=== PATIENT | female | born 1940 | race Caucasian/White ===

== ENCOUNTER 2018-02-20 06:37 | Emergency (ER) | payer OTHER ==
--- NOTE | 2018-02-20 08:26 | EDPHYS ---
Physician Documentation [facility] Name: Tanya Joyner Age: 77 yrs Sex: Female : 1940 Arrival Date: 02/20/2018 Time: 06:38 Bed 20 Private MD: Jayjay Narvaez ED Physician Lemuel Austin HPI: 02/20 07:08 This 77 yrs old Female presents to ER via Unassigned with complaints of Fall rn Injury, Shoulder Injury. 07:08 Details of fall: The patient fell from an upright position, while walking. Onset: The rn symptoms/episode began/occurred this morning. Associated injuries: The patient sustained Right shoulder. Severity of symptoms: At their worst the symptoms were moderate, in the emergency department the symptoms are unchanged. The patient has not experienced similar symptoms in the past. Reports tripped, fell with right arm outstretched, hurts to move and touch right upper arm. No other injuries. . Historical: - Allergies: 07:20 Hydrocodone-Acetaminophen; jd3 - Home Meds: 07:20 Synthroid Oral [Active]; Janumet oral oral [Active]; Fish Oil oral oral [Active]; jd3 aspirin 81 mg Oral chew [Active]; - PMHx: 07:20 Diabetes - NIDDM; breast cancer; High Cholesterol; endometrial cancer; jd3 - PSHx: 07:20 Thyroidectomy; Hysterectomy; lymphectomy; right shoulder sx; right ankle sx; right foot jd3 sx; - Immunization history:: Adult Immunizations up to date. - Family history:: not pertinent. - Social history:: Smoking status: unknown. - Ebola Screening: : Patient negative for fever greater than or equal to 101.5 degrees Fahrenheit, and additional compatible Ebola Virus Disease symptoms. - Hospitalizations: : No recent hospitalization is reported. ROS: 07:08 Constitutional: Negative for fever, chills, and weight loss, Neck: Negative for injury, rn pain, and swelling, Cardiovascular: Negative for chest pain, palpitations, and edema, Abdomen/GI: Negative for abdominal pain, nausea, vomiting, diarrhea, and constipation, Back: Negative for injury and pain, MS/Extremity: + right shoulder pain and injury Skin: Negative for injury, rash, and discoloration, Neuro: Negative for headache, weakness, numbness, tingling, and seizure. Exam: 07:08 Constitutional: This is a well developed, well nourished patient who is awake, alert, rn holding right arm flexed and in sling Head/Face: Normocephalic, atraumatic. Neck: no spinal tenderness MS/ Extremity: Pulses equal, no cyanosis. Neurovascular intact. + right arm flexed and held in sling, + tenderness proximal humerus with limited ROM. Vital Signs: 06:45 BP 142 / 66; Pulse 82; Resp 16 S; Temp 97.7(O); Pulse Ox 99% on R/A; Weight 96.16 kg jd3 (R); Height 5 ft. 6 in. (167.64 cm) (R); Pain 10/10; 07:39 BP 109 / 58; Pulse 65; Resp 16; Pulse Ox 99% ; bp 06:45 Body Mass Index 34.22 (96.16 kg, 167.64 cm) jd3 MDM: 06:58 Patient medically screened. rn 08:25 Differential diagnosis: contusion, fracture, sprain, strain. Data reviewed: vital rn signs, nurses notes, radiologic studies, plain films, and as a result, I will discharge patient. Counseling: I had a detailed discussion with the patient and/or guardian regarding: the historical points, exam findings, and any diagnostic results supporting the discharge/admit diagnosis, radiology results, the need for outpatient follow up, to return to the emergency department if symptoms worsen or persist or if there are any questions or concerns that arise at home. Response to treatment: the patient's symptoms have mildly improved after treatment, and as a result, I will discharge patient. Special discussion: I discussed with the patient/guardian in detail that at this point there is no indication for admission to the hospital. It is understood, however, that if the symptoms persist or worsen the patient needs to return immediately for re-evaluation. Based on the history and exam findings, there is no indication for further emergent testing or inpatient evaluation. I discussed with the patient/guardian the need to see the orthopedic surgeon for further evaluation of the symptoms. 02/20 07:08 Order name: XRAY Humerus RIGHT rn 02/20 08:09 Order name: Shoulder Immobilizer; Complete Time: 09:07 rn Administered Medications: 08:20 Drug: Demerol 25 mg Route: IM; Site: left deltoid; bp 08:42 Follow up: Response: No adverse reaction; Pain is decreased bp 08:20 Drug: Ibuprofen 800 mg Route: PO; bp 08:42 Follow up: Response: Pain is decreased bp Disposition: 02/20/18 08:26 Discharged to Home. Impression: Displaced comminuted fracture of shaft of humerus, right arm. - Condition is Stable. - Discharge Instructions: Humerus Fracture Treated With Immobilization. - Prescriptions for Tylenol- Codeine #3 300-30 mg Oral Tablet - take 1 tablet by ORAL route every 6 hours As needed; 20 tablet. - Medication Reconciliation Form, Thank You Letter, Antibiotic Education, Prescription Opioid Use form. - Follow up: Ignacio Cho MD; When: 2 - 3 days; Reason: Recheck today's complaints, Re-evaluation by your physician. - Problem is new. - Symptoms have improved. Signatures: Dispatcher [employer] EDMS Lemuel Austin MD MD rn Davies, Jonathon, RN RN jLennox March RN RN bp Corrections: (The following items were deleted from the chart) 09:09 08:26 02/20/2018 08:26 Discharged to Home. Impression: Displaced comminuted fracture of bp shaft of humerus, right arm. Condition is Stable. Forms are Medication Reconciliation Form, Thank You Letter, Antibiotic Education, Prescription Opioid Use. Follow up: Ignacio Cho; When: 2 - 3 days; Reason: Recheck today's complaints, Re-evaluation by your physician. Problem is new. Symptoms have improved. rn
--- NOTE | 2018-02-20 08:26 | ER ---
Nurse's Notes [facility] Name: Tanya Joyner Age: 77 yrs Sex: Female : 1940 Arrival Date: 02/20/2018 Time: 06:38 Bed 20 Private MD: Jayjay Narvaez Diagnosis: Displaced comminuted fracture of shaft of humerus, right arm Presentation: 02/20 06:45 Presenting complaint: Patient states: "I tripped and fell on the side walk and landed jd3 on my right arm.". Transition of care: patient was not received from another setting of care. Onset of symptoms was February 20, 2018. Risk Assessment: Do you want to hurt yourself or someone else? Patient reports no desire to harm self or others. Initial Sepsis Screen: Does the patient meet any 2 criteria? No. Patient's initial sepsis screen is negative. Does the patient have a suspected source of infection? No. Patient's initial sepsis screen is negative. Care prior to arrival: None. 06:45 Method Of Arrival: Ambulatory jd3 06:45 Acuity: LUCRETIA 3 jd3 Triage Assessment: 07:00 General: Appears in no apparent distress. comfortable, Behavior is calm, cooperative, bp appropriate for age. Pain: Complains of pain in right shoulder. Historical: - Allergies: 07:20 Hydrocodone-Acetaminophen; jd3 - Home Meds: 07:20 Synthroid Oral [Active]; Janumet oral oral [Active]; Fish Oil oral oral [Active]; jd3 aspirin 81 mg Oral chew [Active]; - PMHx: 07:20 Diabetes - NIDDM; breast cancer; High Cholesterol; endometrial cancer; jd3 - PSHx: 07:20 Thyroidectomy; Hysterectomy; lymphectomy; right shoulder sx; right ankle sx; right foot jd3 sx; - Immunization history:: Adult Immunizations up to date. - Family history:: not pertinent. - Social history:: Smoking status: unknown. - Ebola Screening: : Patient negative for fever greater than or equal to 101.5 degrees Fahrenheit, and additional compatible Ebola Virus Disease symptoms. - Hospitalizations: : No recent hospitalization is reported. Screenin:21 Abuse screen: Denies threats or abuse. Nutritional screening: No deficits noted. jd3 Tuberculosis screening: No symptoms or risk factors identified. Fall Risk Fall in past 12 months (25 points). Ambulatory Aid- None/Bed Rest/Nurse Assist (0 pts). Gait- Normal/Bed Rest/Wheelchair (0 pts) Mental Status- Oriented to own ability (0 pts). Total Rowe Fall Scale indicates Low Risk Score (25-44 pts). Fall prevention measures have been instituted. Side Rails Up X 2 Placed close to Nursing Station Frequent Obs/Assesments occuring Family Present and informed to notify staff if they need to leave bedside. Assessment: 07:00 General: Appears in no apparent distress. comfortable, Behavior is calm, cooperative, bp appropriate for age. Pain: Complains of pain in right arm. Neuro: Level of Consciousness is awake, alert, obeys commands, Oriented to person, place, time, situation, Appropriate for age. Cardiovascular: No deficits noted. Respiratory: Airway is patent Respiratory effort is even, unlabored, Respiratory pattern is regular, symmetrical. GI: No signs and/or symptoms were reported involving the gastrointestinal system. : No signs and/or symptoms were reported regarding the genitourinary system. EENT: No deficits noted. Derm: No deficits noted. Musculoskeletal: Circulation, motion, and sensation intact. Range of motion: limited in right shoulder. 07:51 Reassessment: XRAY COMPLETED, VS STABLE. bp 09:08 Reassessment: PT D/C HOME VIA W/C WITH FAMILY, DX WITH R HUMERUS FX. bp Vital Signs: 06:45 BP 142 / 66; Pulse 82; Resp 16 S; Temp 97.7(O); Pulse Ox 99% on R/A; Weight 96.16 kg jd3 (R); Height 5 ft. 6 in. (167.64 cm) (R); Pain 10/10; 07:39 BP 109 / 58; Pulse 65; Resp 16; Pulse Ox 99% ; bp 06:45 Body Mass Index 34.22 (96.16 kg, 167.64 cm) jd3 ED Course: 06:38 Patient arrived in ED. es 06:38 Jayjay Narvaez MD is Private Physician. es 06:58 Lemuel Austin MD is Attending Physician. rn 07:10 Sling applied to right arm. oe 07:16 Triage completed. jd3 07:17 Arm band placed on. jd3 07:21 Patient has correct armband on for positive identification. Bed in low position. Call jd3 light in reach. Side rails up X 1. Adult w/ patient. 07:31 Lennox Campbell, RN is Primary Nurse. bp 08:04 X-ray completed. Portable x-ray completed in exam room. Patient tolerated procedure jb2 well. 08:06 XRAY Humerus RIGHT In Process Unspecified. EDMS 08:26 Ignacio Cho MD is Referral Physician. rn 08:45 Shoulder immobilizer applied on right shoulder. bp 09:09 No provider procedures requiring assistance completed. Patient did not have IV access bp during this emergency room visit. Administered Medications: 08:20 Drug: Demerol 25 mg Route: IM; Site: left deltoid; bp 08:42 Follow up: Response: No adverse reaction; Pain is decreased bp 08:20 Drug: Ibuprofen 800 mg Route: PO; bp 08:42 Follow up: Response: Pain is decreased bp Outcome: 08:26 Discharge ordered by MD. rn 09:08 Discharged to home via wheelchair, with family. bp 09:08 Condition: stable 09:08 Discharge instructions given to patient, family, Instructed on discharge instructions, follow up and referral plans. medication usage, Demonstrated understanding of instructions, follow-up care, medications, Prescriptions given X 1. 09:09 Patient left the ED. bp Signatures: Dispatcher [employer] EDMS DorothyNhungjulioallen Juaquin jb2 Lemuel Austin MD MD rn Espinosa, Orlando oe Davies, Jonathon, RN RN Lennox Adames, RN RN bp Corrections: (The following items were deleted from the chart) 07:34 07:33 General: Appears in no apparent distress. comfortable, Behavior is calm, bp cooperative, appropriate for age, bp 07:34 07:33 Pain: Complains of pain in right shoulder bp bp
[2018-02-20] MEDS ORDERED: IBUPROFEN 400 MG TAB ONE (08:33)
[2018-02-20] MEDS ORDERED: MEPERIDINE HCL 25 MG/0.5 ML ONE (08:33)
[2018-02-20 09:19] VITALS: TEMP 97.7; O2SAT 99
[2018-02-20 09:21] VITALS: BP 109/58
--- NOTE | 2018-02-20 09:23 | RAD REPORT ---
EXAM DESCRIPTION: RAD - Humerus Right - 02/20/2018 8:05 am CLINICAL HISTORY: Trip and fall, arm pain COMPARISON: None. FINDINGS: AP and scapular Y-views were obtained in the shoulder region with AP and lateral views of the mid shaft and elbow. Transverse surgical neck fracture is present with shaft displaced anteriorly 1/2 shaft width. Humeral head maintains normal positioning to the glenoid. There is an additional transverse fracture through the greater tuberosity with 1- 2 mm of distraction. No pathologic component. AC joint degenerative changes are present. No foreign body or other soft tis christina abnormality. At the elbow joint there is no acute bone finding. Degenerative changes minimal. IMPRESSION: Displaced surgical neck fracture and nondisplaced greater tuberosity fractures of the pr oximal humerus. No dislocation of the humeral head.
== END 2018-02-20 09:09 | disposition home or self-care (01) ==
LOC: ER 06:37
DX: S42.351A Displaced comminuted fracture of shaft of humerus, right arm, initial encounter for closed fracture (principal); W19.XXXA Unspecified fall, initial encounter; Y93.01 Activity, walking, marching and hiking; Y92.9 Unspecified place or not applicable; Z79.82 Long term (current) use of aspirin; Z85.3 Personal history of malignant neoplasm of breast; Z85.89 Personal history of malignant neoplasm of other organs and systems; Z88.5 Allergy status to narcotic agent; E11.9 Type 2 diabetes mellitus without complications; E78.00 Pure hypercholesterolemia, unspecified
CPT/HCPCS: 73060; 96372; 99284; J2175

== ENCOUNTER → 2023-06-03 | Emergency (ER) | payer OTHER ==
[~2023-06-03] MED LIST: MORPHINE 4 MG/ML SYR ONE; ONDANSETRON 4 MG (ODT) TAB ONE
--- NOTE | 2023-06-03 16:09 | RAD REPORT ---
EXAM DESCRIPTION: CT - CTFB CLINICAL HISTORY: TRAUMA COMPARISON: No comparisons TECHNIQUE: Axial 2 mm thick images of the face were obtained with sagittal and coronal reconstructio n images. All CT scans are performed using dose optimization technique as appropriate and may include automated exposure control or mA/KV adjustment according to patient size. FINDINGS: No acute facial bone fracture is seen.The mandible is intact. The globes and orbital contents are grossly unremarkable.The paranasal sinuses and mastoids are clear . Left forehead hematoma. IMPRESSION: No facial fracture identified. Left forehead hematoma.
--- NOTE | 2023-06-03 16:16 | RAD REPORT ---
EXAM DESCRIPTION: CT - CTHCSPWOC - 06/03/2023 4:00 pm CLINICAL HISTORY: Trauma, head and neck injury. TRAUMA COMPARISON: No comparisons TECHNIQUE: Axial 5 mm thick images of the head were obtained. Axial 2 mm thick images of the cervical spine were obtained with sagittal and coronal reconstruction images generated and reviewed. All CT scans are performed using dose optimization technique as appropriate and may include automated exposure control or mA/KV adjustment according to patient size. FINDINGS: CT HEAD WITHOUT CONTRAST: No acute hemorrhage, hydrocephalus or extra-axial collection is identified.No areas of brain edema or midline shift. Chronic small vessel ischemic changes. The paranasal sinuses and mastoids are clear.The calvarium is intact. CT CERVICAL SPINE WITHOUT CONTRAST: No fracture or subluxation.No prevertebral soft tissues swelling is identified. Multilevel degenerati ve changes are present in the spine. IMPRESSION: No acute intracranial or cervical spine findings.
--- NOTE | 2023-06-03 16:18 | RAD REPORT ---
EXAM DESCRIPTION: RAD - Shoulder Left 2 View - 06/03/2023 3:58 pm CLINICAL HISTORY: PAIN COMPARISON: No comparisons FINDINGS/IMPRESSION: Multipart fracture of the left proximal humerus involving at least the surgical neck and greater tuberosity. No dislocation . Left AC joint degenerative changes.
--- NOTE | 2023-06-03 16:19 | RAD REPORT ---
EXAM DESCRIPTION: RAD - Chest Single View - 06/03/2023 3:58 pm CLINICAL HISTORY: BLUNT CHEST TRAUMA COMPARISON: Chest Pa And Lat (2 Views) dated 06/30/2021 FINDINGS: Lines: None. Lungs: No evidence of edema or pneumonia. Pleural: No significant pleural effusions or pneumothorax. Cardiac: Similar size and configuration Mediastinum: Within normal limits. Bones: No acute fractures. Fixation hardware at the right humerus. Other: None IMPRESSION: No acute cardiopulmonary disease.
--- NOTE | 2023-06-03 16:38 | EDPHYS ---
Physician Documentation [facility] Name: Tanya Joyner Age: 82 yrs Sex: Female : 1940 Arrival Date: 06/03/2023 Time: 15:05 Bed 13 Private MD: ED Physician Charly Poon HPI: 06/02 15:08 This 82 yrs old Female presents to ER via Unassigned with complaints of fall. jh7 15:08 Mechanism of injury: Fall: the patient fell from a standing position and struck a tile jh7 surface. Associated injuries: The patient sustained injury to the head, hematoma, left shoulder, decreased range of motion, painful injury. Onset: The symptoms/episode began/occurred acutely. 82-year-old female with a past medical history of hypertension and diabetes presents to the ER post fall. The patient states that she was switching clothing from her washer to her dryer and then slipped on a piece of laundry. She states that her shoulder and forehead hit the door frame and that her left shoulder took the impact of the fall. Complains of pain to her forehead and inability to move her left shoulder secondary to pain. No LOC.. Historical: - Allergies: 15:18 Hydrocodone-Acetaminophen; db - PMHx: 15:18 breast cancer; Diabetes - NIDDM; ENDOMETRIAL CANCER; High Cholesterol; Hypothyroidism; db Hypertensive disorder; - Immunization history:: Adult Immunizations unknown. - Social history:: Smoking status: Patient denies any tobacco usage or history of. Patient/guardian denies using alcohol. ROS: 15:08 Constitutional: Negative for fever, chills, and weight loss, Eyes: Negative for injury, jh7 pain, redness, and discharge, Neck: Negative for injury, pain, and swelling, Cardiovascular: Negative for chest pain, palpitations, and edema, Respiratory: Negative for shortness of breath, cough, wheezing, and pleuritic chest pain, Abdomen/GI: Negative for abdominal pain, nausea, vomiting, diarrhea, and constipation, Back: Negative for injury and pain, Skin: Negative for injury, rash, and discoloration, Neuro: Negative for headache, weakness, numbness, tingling, and seizure, 15:08 MS/extremity: Positive for injury or acute deformity, decreased range of motion, pain, tenderness, of the left shoulder, 15:08 All other systems are negative, Exam: 15:08 Constitutional: This is a well developed, well nourished patient who is awake, alert, jh7 and in no acute distress. Eyes: Pupils equal round and reactive to light, extra-ocular motions intact. Lids and lashes normal. Conjunctiva and sclera are non-icteric and not injected. Cornea within normal limits. Periorbital areas with no swelling, redness, or edema. Neck: Trachea midline, no thyromegaly or masses palpated, and no cervical lymphadenopathy. Supple, full range of motion without nuchal rigidity, or vertebral point tenderness. No Meningismus. Cardiovascular: Regular rate and rhythm with a normal S1 and S2. No gallops, murmurs, or rubs. Normal PMI, no JVD. No pulse deficits. Respiratory: Lungs have equal breath sounds bilaterally, clear to auscultation and percussion. No rales, rhonchi or wheezes noted. No increased work of breathing, no retractions or nasal flaring. Abdomen/GI: Soft, non-tender, with normal bowel sounds. No distension or tympany. No guarding or rebound. No evidence of tenderness throughout. Back: No spinal tenderness. No costovertebral tenderness. Full range of motion. Skin: Warm, dry with normal turgor. Normal color with no rashes, no lesions, and no evidence of cellulitis. Neuro: Awake and alert, GCS 15, oriented to person, place, time, and situation. Sensory grossly intact. Cerebellar exam normal. 15:08 Head/face: Noted is hematoma, that is moderate, of the forehead, 15:08 Musculoskeletal/extremity: Extremities: noted in the left shoulder: decreased ROM, pain, tenderness, ROM: limited active range of motion due to pain, in the left shoulder, limited passive range of motion due to pain, in the left shoulder, Circulation is intact in all extremities. Pulses: are normal with no appreciated deficits, Sensation intact. Vital Signs: 15:02 BP 156 / 123; Pulse 79; Resp 18; Temp 99.1(O); Pulse Ox 99% ; Weight 90.72 kg; Height 5 db ft. 6 in. ; 15:30 BP 151 / 63; Pulse 74; Resp 16; Pulse Ox 96% on R/A; db 15:02 Body Mass Index 32.28 (90.72 kg, 167.64 cm) db MDM: 15:08 Patient medically screened. [facility] 16:25 Differential diagnosis: extremity fracture, shoulder dislocation, shoulder sprain, 7 shoulder contusion, facial fracture. Data reviewed: vital signs, nurses notes, radiologic studies, CT scan, plain films. I considered the following discharge prescriptions or medication management in the emergency department Medications were administered in the Emergency Department. See MAR. Independent interpretation of the following test(s) in the Emergency Department X-Ray: My interpretation is Left proximal humerus fracture. Historians other than the Patient: Daughter/Son: Daughter. Care significantly affected by the following chronic conditions: Diabetes, Hypertension. Counseling: I had a detailed discussion with the patient and/or guardian regarding the historical points, exam findings, and any diagnostic results supporting the discharge/admit diagnosis, the need for outpatient follow up, a orthopedic surgeon, to return to the emergency department if symptoms worsen or persist or if there are any questions or concerns that arise at home. Response to treatment: the patient's symptoms have mildly improved after treatment. Special discussion: Based on the history and exam findings, there is no indication for further emergent testing or inpatient evaluation. I discussed with the patient/guardian the need to see the orthopedic surgeon for further evaluation of the symptoms. 06/02 15:15 Order name: XRAY Chest (1 view); Complete Time: 16:21 [facility] 06/02 15:15 Order name: XRAY Shoulder LEFT 2 view; Complete Time: 16:21 [facility] 06/02 15:15 Order name: CT Facial Bones W/O Con; Complete Time: 16:21 [facility] 06/02 15:15 Order name: CT Head C Spine; Complete Time: 16:21 [facility] 06/02 16:22 Order name: Shoulder Immobilizer; Complete Time: 17:03 [facility] Administered Medications: 15:31 Drug: morphine IM 4 mg IM once Route: IM; Site: right deltoid; db 17:06 Follow up: Response: No adverse reaction db 15:31 Drug: Ondansetron Oral Disintegrating Tablet Oral Disintegrating Tablet 4 mg PO once db Route: PO; 17:06 Follow up: Response: No adverse reaction db Disposition Summary: 06/03/23 16:37 Discharge Ordered Notes: Location: Home [facility] Problem: new [facility] Symptoms: have improved [facility] Condition: Stable [facility] Diagnosis - Left proximal humerus fracture jh7 - Fall on same level, unspecified [facility] - Facial hematoma [facility] Followup: [facility] - With: Samuel Sadler MD - When: 2 - 3 days - Reason: Recheck today's complaints Discharge Instructions: - Discharge Summary Sheet [facility] - Hematoma [facility] - Fall Prevention in the Home, Adult [facility] - Humerus Fracture Treated With Immobilization [facility] - How to Use a Shoulder Immobilizer [facility] Forms: - Medication Reconciliation Form [facility] - Thank You Letter [facility] - Prescription Opioid Use [facility] - Patient Portal Instructions [facility] - Leadership Thank You Letter [facility] Prescriptions: - Tramadol 50 mg Oral tablet - take 1 tablet ORAL route every 8 hours As needed as needed; 20 tablet; Refills: [facility] 0, Product Selection Permitted Signatures: Dispatcher [employer] Oxana Hutchison, ADMINISTRATIVE PERSONAL ASSISTANT ADMINISTRATIVE PERSONAL ASSISTANT [facility] Nabila Jo, RN RN db
--- NOTE | 2023-06-03 16:38 | ER ---
Nurse's Notes [facility] Name: Tanya Joyner Age: 82 yrs Sex: Female : 1940 Arrival Date: 06/03/2023 Time: 15:05 Bed 13 Private MD: Diagnosis: Left proximal humerus fracture;Fall on same level, unspecified;Facial hematoma Presentation: 06/02 15:02 Chief complaint: EMS states: TRIP AND FELL WHILE DOING LAUNDRY. HIT HEAD ON WALL AND db LANDED ON BUTTOCKS AND LEFT ARM. COMPLAINS OF LEFT ARM PAIN. NOTED BRUISING TO FOREHEAD DENIES LOC. GLUCOSE 86. EMS GAVE TYLENOL. Coronavirus screen: Client denies travel out of the [place] in the last 14 days. At this time, the client does not indicate any symptoms associated with coronavirus-19. Ebola Screen: Patient negative for fever greater than or equal to 101.5 degrees Fahrenheit, and additional compatible Ebola Virus Disease symptoms Patient denies exposure to infectious person. Patient denies travel to an Ebola-affected area in the 21 days before illness onset. No symptoms or risks identified at this time. Initial Sepsis Screen: Does the patient meet any 2 criteria? No. Patient's initial sepsis screen is negative. Does the patient have a suspected source of infection? No. Patient's initial sepsis screen is negative. Risk Assessment: Do you want to hurt yourself or someone else? Patient reports no desire to harm self or others. Onset of symptoms was June 03, 2023. Care prior to arrival: Splint applied. Medication(s) given: Tylenol, 1000 mg, Glucose check: 86. Mechanism of Injury: Fall from standing position. 15:02 Method Of Arrival: EMS: [facility] db 15:02 Acuity: LUCRETIA 3 db Triage Assessment: 15:18 General: Appears in no apparent distress. comfortable, Behavior is calm, cooperative. db Pain: Complains of pain in head and left arm. Neuro: Level of Consciousness is awake, alert, obeys commands, Oriented to person, place, time, situation, Speech is normal, Facial symmetry appears normal, Pupils are PERRLA. Respiratory: Airway is patent Respiratory effort is even, unlabored, Respiratory pattern is regular, symmetrical. Musculoskeletal: Circulation, motion, and sensation intact. Capillary refill < 3 seconds, Range of motion: limited in left shoulder. Historical: - Allergies: 15:18 Hydrocodone-Acetaminophen; db - PMHx: 15:18 breast cancer; Diabetes - NIDDM; ENDOMETRIAL CANCER; High Cholesterol; Hypothyroidism; db Hypertensive disorder; - Immunization history:: Adult Immunizations unknown. - Social history:: Smoking status: Patient denies any tobacco usage or history of. Patient/guardian denies using alcohol. Screenin:38 [facility] ED Fall Risk Assessment (Adult) History of falling in the last 3 months, db including since admission Yes- single mechanical fall (1 pt) Confusion or Disorientation No (0 pts) Intoxicated or Sedated No (0 pts) Impaired Gait No (0 pts) Mobility Assist Device Used No (0 pt) Altered Elimination No (0 pt) Score/Fall Risk Level 0 - 2 = Low Risk Oriented to surroundings, Maintained a safe environment. Abuse screen: Denies threats or abuse. Denies injuries from another. Nutritional screening: No deficits noted. Tuberculosis screening: No symptoms or risk factors identified. Assessment: 15:20 Reassessment: SEE TRIAGE FOR INITIAL ASSESSMENT. db 15:38 Reassessment: Patient appears in no apparent distress at this time. Patient and/or db family updated on plan of care and expected duration. Pain level reassessed. Patient is alert, oriented x 3, equal unlabored respirations, skin warm/dry/pink. FAMILY IS AT BEDSIDE. 16:30 Reassessment: Patient appears in no apparent distress at this time. Patient and/or db family updated on plan of care and expected duration. Pain level reassessed. Patient is alert, oriented x 3, equal unlabored respirations, skin warm/dry/pink. General: Appears in no apparent distress. comfortable, Behavior is calm, cooperative. Neuro: Level of Consciousness is awake, alert, obeys commands, Oriented to person, place, time, situation. Respiratory: Airway is patent Respiratory effort is even, unlabored, Respiratory pattern is regular, symmetrical. Vital Signs: 15:02 BP 156 / 123; Pulse 79; Resp 18; Temp 99.1(O); Pulse Ox 99% ; Weight 90.72 kg; Height 5 db ft. 6 in. ; 15:30 BP 151 / 63; Pulse 74; Resp 16; Pulse Ox 96% on R/A; db 15:02 Body Mass Index 32.28 (90.72 kg, 167.64 cm) db ED Course: 15:08 Patient arrived in ED. 15:08 Oxana Goodman FNP [facility] 15:08 Charly Poon MD is Attending Physician. [facility] 15:15 Nabila Jo, RN is Primary Nurse. db 15:18 Triage completed. db 15:18 Arm band placed on Patient placed in an exam room. db 15:38 Patient has correct armband on for positive identification. Bed in low position. Call db light in reach. Side rails up X 1. Pulse ox on. NIBP on. 16:00 XRAY Chest (1 view) In Process Unspecified. EDMS 16:00 XRAY Shoulder LEFT 2 view In Process Unspecified. EDMS 16:[address] via stretcher. hb 16:02 CT Facial Bones W/O Con In Process Unspecified. EDMS 16:02 CT Head C Spine In Process Unspecified. EDMS 16:13 Patient moved back from CT. 16:36 Samuel Sadler MD is Referral Physician. [facility] 16:45 Provided Education on: DISCHARGE. db 16:45 Shoulder immobilizer applied on left shoulder. db 17:05 No provider procedures requiring assistance completed. Patient did not have IV access db during this emergency room visit. Administered Medications: 15:31 Drug: morphine IM 4 mg IM once Route: IM; Site: right deltoid; db 17:06 Follow up: Response: No adverse reaction db 15:31 Drug: Ondansetron Oral Disintegrating Tablet Oral Disintegrating Tablet 4 mg PO once db Route: PO; 17:06 Follow up: Response: No adverse reaction db Medication: 16:45 VIS not applicable for this client. db Outcome: 16:37 Discharge ordered by . [facility] 17:05 Discharged to home ambulatory, with family, db 17:05 Condition: stable 17:05 Discharge instructions given to patient, family, Instructed on discharge instructions, follow up and referral plans. Prescriptions given X 1, 17:06 Patient left the ED. db Signatures: Dispatcher [employer] EDLouise Foreman, RN RN Yelena Thorpe Oxana Goodman FNP [place] [id number] Nabila Jo, RN RN db Corrections: (The following items were deleted from the chart) 17:05 16:30 Patient did not have IV access during this emergency room visit. db db 17:05 16:30 No provider procedures requiring assistance completed. db db
[2023-06-03 17:33] VITALS: BP 151/63; O2SAT 96
== END ==
LOC: ER 15:05
DX: S42.202A Unspecified fracture of upper end of left humerus, initial encounter for closed fracture (principal); S00.83XA Contusion of other part of head, initial encounter; W18.30XA Fall on same level, unspecified, initial encounter; E11.9 Type 2 diabetes mellitus without complications; I10 Essential (primary) hypertension; Z88.5 Allergy status to narcotic agent; Z85.3 Personal history of malignant neoplasm of breast; Z85.89 Personal history of malignant neoplasm of other organs and systems
CPT/HCPCS: 70450; 72125; 70486; 76377; 71045; 73030; 96372; 99285; Q0162

== ENCOUNTER 2023-06-06 10:47 | Inpatient (IN) | payer OTHER ==
[2023-06-06 12:04] LABS: Absolute Eosinophils 0.1 K/uL (0-0.5); Absolute Lymphocytes (CBC) 1.4 K/uL (0.7-4.9); Absolute Monocytes 0.3 K/uL (0.1-1.3); Absolute Neutrophil 3.4 K/uL (1.8-8.0); Basophils % 0.7 % (0-1.3); Eosinophils % 2.2 % (0-4.4); Hematocrit 37.1 % (36.0-45.0); Hemoglobin 12.2 g/dL (12.0-15.0); MCH 28.7 pg (27.0-35.0); MCHC 32.9 g/dL (32.0-36.0); MCV 87.1 fL (80-100); MPV 9.1 fL (7.6-11.3); Monocytes % 5.1 % (3.3-12.3); Nucleated Red Blood Cells % 0.1 % (0-0); Platelets 232 thou/uL (152-406); RBC Red Blood Cell Count 4.26 M/uL (3.86-4.86); Red Cell Distribution Width 14.9 % (12.1-15.2)
[2023-06-06 12:19] LABS: Albumin 3.1 g/dL (3.4-5.0); Albumin/Globulin Ratio 0.7 (1.1-1.8); Anion Gap 9.8 mEq/L (5.0-15.0); Bilirubin Direct 0.3 mg/dL (0-0.2); Bilirubin Indirect, Calculated 0.5 mg/dL (0.2-0.8); Bilirubin Total 0.8 mg/dL (0.2-1.0); Globulin 4.5 g/dL (2.3-3.5); Potassium 3.8 mEq/L (3.5-5.1); Protein, Total 7.6 g/dL (6.4-8.2)
--- NOTE | 2023-06-06 12:54 | RAD REPORT ---
EXAM DESCRIPTION: RAD - Chest Single View - 06/06/2023 12:43 pm CLINICAL HISTORY: RIB PAIN, BLUNT CHEST TRAUMA Chest pain. COMPARISON: Chest Single View dated 06/03/2023; Chest Pa And Lat (2 Views) dated 06/30/2021 FINDINGS: Portable technique limits examination quality. The lungs are grossly clear. The heart is mildly enlarged in size. No displaced fractures.Hardware is present in the proximal right humerus.
--- NOTE | 2023-06-06 12:55 | RAD REPORT ---
EXAM DESCRIPTION: RAD - Ribs Right - 06/06/2023 12:43 pm CLINICAL HISTORY: RIB PAIN, BLUNT CHEST TRAUMA COMPARISON: Chest Single View dated 06/06/2023 FINDINGS: Diffuse osteopenia is present. No displaced rib fracture evident.
--- NOTE | 2023-06-06 13:53 | ER ---
[facility]'s Notes [facility] Name: Tanya Joyner Age: 82 yrs Sex: Female : 1940 Arrival Date: 06/06/2023 Time: 10:47 Bed 20 Private MD: Diagnosis: Weakness;Fall on same level, unspecified Presentation: 06/05 11:01 Chief complaint: EMS states: "Pt tripped and fell Monday and reports becoming rs5 progressively weaker over the past few days". 11:01 Coronavirus screen: At this time, the client does not indicate any symptoms associated rs5 with coronavirus-19. Ebola Screen: No symptoms or risks identified at this time. Initial Sepsis Screen: Does the patient meet any 2 criteria? No. Patient's initial sepsis screen is negative. Does the patient have a suspected source of infection? No. Patient's initial sepsis screen is negative. Risk Assessment: Do you want to hurt yourself or someone else? Patient reports no desire to harm self or others. Onset of symptoms was June 03, 2023. 11:01 Method Of Arrival: EMS: [facility] rs5 11:01 Acuity: LUCRETIA 3 rs5 11:01 Care prior to arrival: Medication(s) given: Toradol 15 mg to RAC IV initiated. 20 GA, rs5 in the right antecubital area. Historical: - Allergies: 11: Hydrocodone-Acetaminophen; rs5 - PMHx: 11: breast cancer; Diabetes - NIDDM; ENDOMETRIAL CANCER; High Cholesterol; Hypertensive rs5 disorder; Hypothyroidism; - Immunization history:: Adult Immunizations up to date. - Social history:: Smoking status: . - Family history:: not pertinent. - Hospitalizations: : No recent hospitalization is reported. Screenin:01 [facility] ED Fall Risk Assessment (Adult) History of falling in the last 3 months, rs5 including since admission Yes- single mechanical fall (1 pt) Confusion or Disorientation No (0 pts) Intoxicated or Sedated No (0 pts) Impaired Gait Yes (1 pt) Mobility Assist Device Used No (0 pt) Altered Elimination No (0 pt) Score/Fall Risk Level 0 - 2 = Low Risk Oriented to surroundings, Maintained a safe environment. 11:01 Abuse screen: Denies threats or abuse. Abuse screen: Denies threats or abuse. rs5 Nutritional screening: No deficits noted. Tuberculosis screening: No symptoms or risk factors identified. Assessment: 11:01 General: Appears in no apparent distress. uncomfortable, Behavior is calm, cooperative. rs5 Pain: Complains of pain in left shoulder Pain currently is 2 out of 10 on a pain scale. Quality of pain is described as aching, Is continuous. 11:01 Neuro: Level of Consciousness is awake, alert, obeys commands, Oriented to person, rs5 place, time, situation. Cardiovascular: Patient's skin is warm and dry. Rhythm is regular. Respiratory: Respiratory effort is even, unlabored, Respiratory pattern is regular, symmetrical. GI: Abdomen is round non-distended, Abd is soft and non tender X 4 quads. : No signs and/or symptoms were reported regarding the genitourinary system. EENT: No signs and/or symptoms were reported regarding the EENT system. Derm: Skin is intact, Skin is pink, warm \\T\\ dry. Derm: Bruising that is bruise noted to left side of pt's forehead. Musculoskeletal: Capillary refill < 3 seconds, is brisk, in bilateral fingers. Range of motion: limited in left arm. 12:05 Reassessment: No changes from previously documented assessment. rs5 13:35 Reassessment: Patient and/or family updated on plan of care and expected duration. Pain rs5 level reassessed. Patient is alert, oriented x 3, equal unlabored respirations, skin warm/dry/pink. Patient denies pain at this time. 13:50 Reassessment: Provider at bedside. rs5 14:55 Reassessment: Patient and/or family updated on plan of care and expected duration. Pain rs5 level reassessed. Patient is alert, oriented x 3, equal unlabored respirations, skin warm/dry/pink. Patient states feeling better. Vital Signs: 11:01 BP 158 / 76; Pulse 80; Resp 18; Temp 97.8(O); Pulse Ox 98% on R/A; rs5 13:36 BP 150 / 83; Pulse 77; Resp 18; Pulse Ox 98% on R/A; rs5 ED Course: 10:54 Patient arrived in ED. rn 10:54 Lemuel Austin MD is Attending Physician. rn 11:01 Patient has correct armband on for positive identification. Placed in gown. Bed in low rs5 position. Call light in reach. Side rails up X2. 11:23 Harlan Bermeo, JUSTIN is Primary Nurse. rs5 11:26 Triage completed. rs5 13:37 No provider procedures requiring assistance completed. rs5 13:51 Darek Austin MD is Hospitalizing Provider. rn 15:30 Primary Nurse role handed off by Harlan Bermeo, RN mb9 Administered Medications: No medications were administered Medication: 13:37 VIS not applicable for this client. rs5 Outcome: 13:53 Decision to Hospitalize by Provider. rn 18:38 Patient left the ED. iw Signatures: Ariadne Fitzgerald RN RN iw Lemuel Austin MD MD rn Breneman, Mary Beth, RN RN mb9 Harlan Bermeo, JUSTIN RN rs5
--- NOTE | 2023-06-06 13:53 | EDPHYS ---
Physician Documentation [facility] Name: Tanya Joyner Age: 82 yrs Sex: Female : 1940 Arrival Date: 06/06/2023 Time: 10:47 Bed 20 Private MD: ED Physician Lemuel Austin HPI: 06/05 11:22 This 82 yrs old Female presents to ER via Unassigned with complaints of weakness. rn 11:22 Patient reports generalized weakness and malaise. Fell on Monday and broke left rn humerus. Did not have pain initially to right ribs but now complaining of slight discomfort to the right ribs. No shortness of breath. No chest pain otherwise. Patient reports swelling to face and bruising to face improving slowly. No new fall or injury. Family concerned due to fall and difficulty caring for herself in the last few days. Patient states has been sitting and family taking care of her. Denies focal weakness. Patient states she does not feel that bad or as bad as her family makes it sound.. Onset: The symptoms/episode began/occurred at an unknown time. Severity of symptoms: At their worst the symptoms were mild in the emergency department the symptoms are unchanged. The patient has not experienced similar symptoms in the past. The patient has been recently seen at the [facility] Emergency Department. Historical: - Allergies: 11: Hydrocodone-Acetaminophen; rs5 - PMHx: 11:01 breast cancer; Diabetes - NIDDM; ENDOMETRIAL CANCER; High Cholesterol; Hypertensive rs5 disorder; Hypothyroidism; - Immunization history:: Adult Immunizations up to date. - Social history:: Smoking status: . - Family history:: not pertinent. - Hospitalizations: : No recent hospitalization is reported. ROS: 11:22 Constitutional: Negative for fever, chills, and weight loss, Cardiovascular: Positive rn for right-sided rib pain Respiratory: Negative for shortness of breath, cough, wheezing, and pleuritic chest pain, Abdomen/GI: Negative for abdominal pain, nausea, vomiting, diarrhea, and constipation, Back: Negative for injury and pain, MS/Extremity: Positive for previous fracture to left humerus Skin: Negative for injury, rash, and discoloration, Neuro: Negative for headache, numbness, tingling, and seizure, Exam: 11:22 Constitutional: This is a well developed, well nourished patient who is awake, alert, rn and in no acute distress. Head/Face: Healing ecchymosis to left periorbital region Eyes: Pupils equal round and reactive to light, extra-ocular motions intact. ENT: No intraoral injury Neck: No midline cervical tenderness Chest/axilla: Mild tenderness right inferior lateral ribs without crepitus Cardiovascular: Regular rate and rhythm. No pulse deficits. Respiratory: No increased work of breathing, no retractions or nasal flaring. Abdomen/GI: Soft, non-tender, nondistended MS/ Extremity: Left arm in shoulder immobilizer. Neuro: Awake and alert, GCS 15, oriented to person, place, time, and situation. Cranial nerves II-XII grossly intact. Motor strength 4/5 in all extremities. Sensory grossly intact. 15:07 ECG was reviewed by the Attending Physician. rn Vital Signs: 11:01 BP 158 / 76; Pulse 80; Resp 18; Temp 97.8(O); Pulse Ox 98% on R/A; rs5 13:36 BP 150 / 83; Pulse 77; Resp 18; Pulse Ox 98% on R/A; rs5 MDM: 10:54 Patient medically screened. rn 13:50 Differential Diagnosis weakness, dehydration, pleurisy, pneumonia, electrolyte rn disturbance, dementia. Data reviewed: vital signs, nurses notes, lab test result(s), radiologic studies, plain films, and as a result, I will admit patient. Consideration of Admission/Observation Patient was admitted/placed on observation. Escalation of care including admission/observation considered. Management of patient was discussed with the following: Primary Care Provider: Dr. Narvaez, discussed case, agrees with observation in hospital with physical therapy. Is leaving out of town tomorrow morning so asked me to admit to hospitalist service. Care significantly affected by the following chronic conditions: Diabetes, Hypertension, Dementia. Counseling: I had a detailed discussion with the patient and/or guardian regarding the historical points, exam findings, and any diagnostic results supporting the discharge/admit diagnosis, lab results, radiology results, the need for further work-up and treatment in the hospital. Response to treatment: the patient's symptoms have mildly improved after treatment, and as a result, I will admit patient. 06/05 10:55 Order name: CBC with Diff rn 06/05 10:55 Order name: Basic Metabolic Panel rn 06/05 10:55 Order name: Urinalysis w/ reflexes rn 06/05 10:55 Order name: LFT's rn 06/05 12:06 Order name: CBC with Automated Diff; Complete Time: 12:34 EDCO 06/05 12:20 Order name: Comprehensive Metabolic Panel; Complete Time: 12:34 EDMS 06/05 12:20 Order name: Liver (Hepatic) Function; Complete Time: 12:34 EDCO 06/05 10:55 Order name: XRAY Chest (1 view) rn 06/05 10:55 Order name: Ribs Right XRAY rn 06/05 12:54 Order name: RAD; Complete Time: 13:31 EDCO 06/05 12:55 Order name: RAD; Complete Time: 13:31 EDCO 06/05 10:55 Order name: EKG; Complete Time: 17:07 rn 06/05 10:55 Order name: IV Start; Complete Time: 11:58 rn 06/05 10:55 Order name: EKG - Nurse/Tech; Complete Time: 11:58 rn 06/05 10:55 Order name: Cardiac monitoring; Complete Time: 11:58 rn 06/05 10:55 Order name: O2 Sat Monitoring; Complete Time: 11:58 rn EC:07 Rate is 62 beats/min. Rhythm is regular. [place] interval is prolonged at 360 msec. QRS rn interval is normal. QT interval is normal. No Q waves. T waves are Normal. No ST changes noted. Clinical impression: NSR w/ Non-specific ST/T Changes and 1st degree heart block. Interpreted by me. Reviewed by me. Administered Medications: No medications were administered Disposition Summary: 06/06/23 13:53 Hospitalization Ordered Notes: Hospitalization Status: Observation rn Provider: Darek Austin rn Location: Telemetry/MedSurg (observation) rn Condition: Stable rn Problem: new rn Symptoms: are unchanged rn Bed/Room Type: Standard rn Room Assignment: 418(06/06/23 17:26) mc5 Diagnosis - Weakness rn - Fall on same level, unspecified rn Forms: - Medication Reconciliation Form rn - SBAR form rn - Leadership Thank You Letter rn Signatures: Dispatcher [facility] Lemuel Austin MD MD rn Sotelo, Ricky, RN RN 5 Navya Beckman mc5 Corrections: (The following items were deleted from the chart) 17:26 13:53 [facility]
--- NOTE | 2023-06-06 14:49 | P.HP ---
Certification for Inpatient Patient admitted to: Observation With expected LOS: <2 Midnights Patient will require the following post-hospital care: None Practitioner: I am a practitioner with admitting privileges, knowledge of patient current condition, hospital course, and medical plan of care. Services: Services provided to patient in accordance with Admission requirements found in Title 42 Section 412.3 of the Code of Federal Regulations Patient History Date of Service: 06/06/23 Reason for admission: Weakness, left humeral fracture History of Present Illness: 82-year-old female with history of [id number]-yezgpheek diabetes, hypertension, secondary hypothyroidism presents to the emergency department chief complaint of weakness, fall, left upper extremity pain. On 06/03/2023 she suffered a mechanical fall with a proximal left humerus fracture and facial hematoma. She was discharged home with a sling in place and instructions to follow-up with orthopedics. Daughter reports that she has been having increasing weakness and was unable to stand up without assistance today. Patient lives at home, alone and there is concern for her ability to care for herself given her increasing weakness, pain to the left upper extremity. Patient was evaluated in the emergency department her labs were unremarkable chest x-ray was negative for acute findings, ribs series x-ray was performed as well which showed no displaced rib fractures. ED provider wishes admit patient under observation for weakness, left proximal humeral fracture Allergies Antihistamines - Alkylamine Adverse Reaction (Mild, Verified 12/06/12 14:35) Itching Home Medications: Aspirin [Aspirin EC 81 MG] 81 mg PO DAILY 12/06/12 Levothyroxine [Synthroid] 100 mcg PO AC 12/06/12 Niacin [Niacin*] 100 mg PO BEDTIME 12/06/12 Lupton-3 Fatty Acids [Fish Oil] 500 mg PO BID 12/06/12 Sitagliptin Phos/Metformin HCl [Janumet 50-500 mg Tablet] 1 each PO BID 12/06/12 - Past Medical/Surgical History Diabetic: Yes -: DM -: Hyperlipidemia -: Hypothyroidism -: Thyroidectomy -: Hysterectomy -: Lumpectomy -: Carpal tunnel surgery -: Right humeral repair Psychosocial/ Personal History: Lives at home, alone. - Family History Family History: Reviewed- Non-Contributory - Social History Smoking Status: Never smoker Alcohol use: No Place of Residence: Home Review of Systems 10-point ROS is otherwise unremarkable Musculoskeletal: Shoulder Pain, Arm Pain Physical Examination - Physical Exam General: Alert, In no apparent distress, Oriented x3 HEENT: Atraumatic, PERRLA, Mucous membr. moist/pink Neck: Supple, 2+ carotid pulse no bruit, No LAD Respiratory: Clear to auscultation bilaterally, Normal air movement Cardiovascular: Regular rate/rhythm, Normal S1 S2 Gastrointestinal: Normal bowel sounds, No tenderness Musculoskeletal: Other (left arm in sling) Integumentary: No rashes, Other (Left facial bruising noted) Neurological: Normal speech, Normal strength at 5/5 x4 extr, Normal tone, Normal affect - Studies Laboratory Data (last 24 hrs) 06/06/23 06/06/23 10:50 10:50 WBC 5.30 Hgb 12.2 Hct 37.1 Plt Count 232 Sodium 137 Potassium 3.8 BUN 17 Creatinine 0.91 Glucose 90 Total Bilirubin 0.8 AST 16 ALT 14 Alkaline Phosphatase 74 Assessment and Plan - Plan Assessment: Weakness, left proximal humeral fracture Dementia Diabetes mellitus type [id number] Hypertension Hypothyroidism Plan: Weakness, left proximal humeral fracture Dementia Sling to left upper extremity place PT consulted Patient lives alone, was unable to get out of her recliner today Concern given her dementia, increased risk for falls, inability to care for herself currently Await PT recs, social services aide consult to be placed As needed pain medications Diabetes mellitus type [id number] ACHS Accu-Chek, sliding scale insulin Hypertension Hypothyroidism Continue home medications DVT PPX: Lovenox Code status: Full Discharge Plan: Home Plan to discharge in: 24 Hours - Advance Directives Does patient have a Living Will: No Does patient have a Durable POA for Healthcare: No - Code Status/Comfort Care Code Status Assessed: Yes (Full code) Critical Care: No Time Spent Managing Pts Care (In Minutes): 55
[2023-06-06 16:22] VITALS: BMI 35.5
[2023-06-06] MEDS ORDERED: ONDANSETRON 4 MG/2 ML VIAL IV PRN (19:49)
[2023-06-06] MEDS: INSULIN REGULAR (HUMAN) 100 UNIT/ML SQ SCH (19:49)
[2023-06-06] MEDS: TRAMADOL HCL 50 MG TAB PO PRN (22:00)
[2023-06-07] MEDS: ACETAMINOPHEN 325 MG TABLET PO PRN (01:34)
[2023-06-07 07:38] LABS: Absolute Eosinophils 0.1 K/uL (0-0.5); Absolute Lymphocytes (CBC) 1.8 K/uL (0.7-4.9); Absolute Monocytes 0.3 K/uL (0.1-1.3); Absolute Neutrophil 2.3 K/uL (1.8-8.0); Basophils % 0.8 % (0-1.3); Eosinophils % 2.9 % (0-4.4); Hematocrit 35.1 % (36.0-45.0); Hemoglobin 11.6 g/dL (12.0-15.0); Lymphocytes % 39.4 % (15.3-44.8); MCH 28.8 pg (27.0-35.0); MCHC 33.1 g/dL (32.0-36.0); MCV 87.2 fL (80-100); MPV 9.2 fL (7.6-11.3); Monocytes % 7.1 % (3.3-12.3); Neutrophils % 49.8 % (41.7-73.7); Nucleated Red Blood Cells % 0.1 % (0-0); Platelets 204 thou/uL (152-406); RBC Red Blood Cell Count 4.02 M/uL (3.86-4.86); Red Cell Distribution Width 14.9 % (12.1-15.2)
[2023-06-07] MEDS: ENOXAPARIN 40 MG/0.4 ML SQ SCH (07:53)
[2023-06-07 08:04] LABS: Anion Gap 8.8 mEq/L (5.0-15.0); Potassium 3.8 mEq/L (3.5-5.1); Thyroid Stimulating Hormone 2.39 uIU/mL (0.358-3.740)
[2023-06-07] MEDS: POTASSIUM CL SA 10 MEQ TAB PO ONE (10:48)
--- NOTE | 2023-06-07 11:43 | P.PN ---
Date of Service: 06/07/23 Subjective: Complains of pain with movement of left shoulder No acute events overnight ROS: 10 point ROS as noted above, otherwise negative Physical exam GEN: Alert, oriented, NAD HEENT: Normal conjunctiva, sclera anicteric CV: Regular rate and rhythm, no edema Pulm: Nonlabored respirations on room air ABD: Soft, nontender, nondistended MSK: Left arm in sling, pain range of motion of left upper extremity Integumentary: No rashes Neuro: Normal speech, normal affect Vitals reviewed Problem List Weakness, left proximal humeral fracture Dementia Diabetes mellitus type 0oyj-euzxeyh-tiezdlivb Hypertension Hypothyroidism Plan: Weakness, left proximal humeral fracture Dementia Sling to left upper extremity place limiting ability to use walker/ambulate PT consulted Patient lives alone, was unable to get out of her recliner today Concern given her dementia, increased risk for falls, inability to care for herself currently Await PT recs, social service technician consult to be placed As needed pain medications Having some chest wall pain as well, added incentive spirometry Diabetes mellitus type 1dpa-xzqhqgc-bpzovtzki ACHS Accu-Chek, sliding scale insulin Home medications continued Hypertension Hypothyroidism Home medications continued DVT PPX: Lovenox Code status: Full Discharge Plan: Home Plan to discharge in: 24 Hours Time Spent Managing Pts Care (In Minutes): 35 <Tuan Biggs - Last Filed: 06/07/23 11:41> (DOS: 06/07/23) Patient seen and examined on rounds this morning with DATA MANAGEMENT ASSOCIATE Dian. Agree with plan as noted above with the following additions/corrections: slight improvement. pain mostly with movement/deep breath at right ribs/chest afebrile. not moving around much due to pain. family at bedside, updated. concerned about ability to care for her at home. patient lives by herself currently, with family able to occasionally check on her she has some mild dementia - memory issues; repeats herself occasionally re-iterated importance of incentive spirometer continue PT <Darek Austin - Last Filed: 06/11/23 14:25>
[2023-06-07] MEDS: HYDROXYCHLOROQUINE 200MG TAB PO SCH (21:04)
[2023-06-07] MEDS: METFORMIN HCL 500 MG TAB PO SCH (21:05)
[2023-06-08] MEDS: LEVOTHYROXINE SOD 0.088 MG TAB PO SCH (06:01)
[2023-06-08 06:29] LABS: Anion Gap 8.8 mEq/L (5.0-15.0); Potassium 3.8 mEq/L (3.5-5.1)
[2023-06-08 06:35] LABS: Absolute Eosinophils 0.1 K/uL (0-0.5); Absolute Lymphocytes (CBC) 1.2 K/uL (0.7-4.9); Absolute Monocytes 0.3 K/uL (0.1-1.3); Absolute Neutrophil 2.8 K/uL (1.8-8.0); Basophils % 0.4 % (0-1.3); Eosinophils % 2.8 % (0-4.4); Hematocrit 36.3 % (36.0-45.0); Lymphocytes % 26.1 % (15.3-44.8); MCH 28.9 pg (27.0-35.0); MCHC 32.9 g/dL (32.0-36.0); MCV 87.9 fL (80-100); MPV 9.1 fL (7.6-11.3); Monocytes % 7.2 % (3.3-12.3); Neutrophils % 63.5 % (41.7-73.7); Nucleated Red Blood Cells % 0.1 % (0-0); Platelets 222 thou/uL (152-406); RBC Red Blood Cell Count 4.13 M/uL (3.86-4.86)
[2023-06-08] MEDS: PIOGLITAZONE 15 MG TAB PO SCH (07:44)
[2023-06-08] MEDS: predniSONE 5 MG TAB PO SCH (07:44)
[2023-06-08] MEDS: METFORMIN HCL 500 MG TAB PO SCH (07:44)
[2023-06-08] MEDS: ramipriL 5 MG CAP PO SCH (07:44)
[2023-06-08] MEDS: ASPIRIN EC 81 MG TAB PO SCH (07:45)
[2023-06-08] MEDS: POTASSIUM CL SA 10 MEQ TAB PO ONE (08:52)
[2023-06-08] MEDS: LIDOCAINE 4% PATCH TOP SCH (12:48)
--- NOTE | 2023-06-08 13:26 | P.PN ---
Date of Service: 06/08/23 Subjective: Complains of pain with movement of left shoulder Also C/O pain to right thorax ROS: 10 point ROS as noted above, otherwise negative Physical exam GEN: Alert, oriented, NAD HEENT: Normal conjunctiva, sclera anicteric CV: Regular rate and rhythm, no edema Pulm: Nonlabored respirations on room air ABD: Soft, nontender, nondistended MSK: Left arm in sling, pain range of motion of left upper extremity Integumentary: No rashes Neuro: Normal speech, normal affect Vitals reviewed Problem List Weakness, left proximal humeral fracture Dementia Diabetes mellitus type [id number]-[id number]-jsrpbxhry Hypertension Hypothyroidism Plan: Weakness, left proximal humeral fracture Dementia Sling to left upper extremity place limiting ability to use walker/ambulate PT consulted Patient lives alone, was unable to get out of her recliner today Concern given her dementia, increased risk for falls, inability to care for herself currently Seen by PT who believes patient would benefit with inpatient rehab human resources services specialist consulted for acute rehab As needed pain medications Having some chest wall pain as well, added incentive spirometry Added lidocaine patch 06/07 Diabetes mellitus type [id number]-[id number]-uvvdjmhgb ACHS Accu-Chek, sliding scale insulin Home medications continued Hypertension Hypothyroidism Home medications continued DVT PPX: Lovenox Code status: Full Discharge Plan: Home Plan to discharge in: 24-48 hours Time Spent Managing Pts Care (In Minutes): 35
[2023-06-08 19:59] LABS: Specific Gravity 1.028 (1.005-1.030); Urine Bacteria <20 /HPF (<20); Urine Bilirubin NEGATIVE (Negative); Urine Blood 2+ (Negative); Urine Clarity Extremely Turbid (Clear); Urine Color Yellow (Yellow); Urine Crystals Unidentified Few /HPF (None Seen); Urine Culture Reflex Order REFLEXED; Urine Glucose NEGATIVE (Negative); Urine Ketones TRACE (Negative); Urine Microscopic Reflex YN ORDER UMIC; Urine Mucus 2+ /HPF (None Seen); Urine Nitrite 2+ (Negative); Urine Protein 1+ (Negative); Urine Urobilinogen 1+ (Normal); Urine WBC 20-50 /HPF (<5); Urine Yeast (Budding) Few /HPF (None Seen)
--- NOTE | 2023-06-09 08:57 | RAD REPORT ---
EXAM DESCRIPTION: CT - Thorax Wo Con - 06/09/2023 8:47 am CLINICAL HISTORY: Chest pain status post fall COMPARISON: None TECHNIQUE: Computed axial tomography of the chest was obtained. Contrast was not requested. All CT scans are performed using dose optimization technique as appropriate and may include automated exposure control or mA/KV adjustment according to patient size. FINDINGS: The evaluation of mediastinum, rochelle and vessels is limited secondary to lack of IV contras t administration. A mediastinal hematoma is not seen. A pulmonary contusion is not noted A pleural effusion is not present. A pericardial effusion is not seen A rib fracture is not seen IMPRESSION: No acute traumatic injury involving the chest seen
--- NOTE | 2023-06-09 12:44 | P.PN ---
Date of Service: 06/09/23 Subjective: Complains of pain with movement of left shoulder Also C/O pain to right thorax working well with physical therapy No acute events overnight ROS: 10 point ROS as noted above, otherwise negative Physical exam GEN: Alert, oriented, NAD HEENT: Normal conjunctiva, sclera anicteric CV: Regular rate and rhythm, no edema Pulm: Nonlabored respirations on room air ABD: Soft, nontender, nondistended MSK: Left arm in sling, pain range of motion of left upper extremity Integumentary: No rashes Neuro: Normal speech, normal affect Vitals reviewed Problem List Weakness, left proximal humeral fracture Dementia Diabetes mellitus type [id number]-[id number]-dnrucvgax Hypertension Hypothyroidism Plan: Weakness, left proximal humeral fracture Dementia Sling to left upper extremity place limiting ability to use walker/ambulate PT consulted Patient lives alone, was unable to get out of her recliner today Concern given her dementia, increased risk for falls, inability to care for herself currently Seen by PT who believes patient would benefit with inpatient rehab food services manager consulted for acute rehab As needed pain medications Having some chest wall pain as well, added incentive spirometry Added lidocaine patch 06/07 CT chest 06/08 no acute findings of the chest/rib fractures Diabetes mellitus type [id number]-grgkmvauk ACHS Accu-Chek, sliding scale insulin Home medications continued Hypertension Hypothyroidism Home medications continued DVT PPX: Lovenox Code status: Full Discharge Plan: Home Plan to discharge in: 24-48 hours Time Spent Managing Pts Care (In Minutes): 35
--- NOTE | 2023-06-09 17:35 | EKG ---
Test Date: 2023-06-06 Test Time: 11:52:13 Clerk Guide: BRITTNEY MEASUREMENT RESULTS: Intervals: Rate: 62 SD: 360 QRSD: 90 QT: 438 QTc: 444 [place]: P: 64 SD: 360 QRS: 65 T: 67 INTERPRETIVE STATEMENTS: Sinus rhythm with marked sinus arrhythmia with 1st degree AV block Nonspecific T wave abnormality Abnormal ECG No previous ECG available for comparison Electronically Signed On 06-09-23 17:25:33 CDT by Jaciel Gill
--- NOTE | 2023-06-10 08:43 | CON ---
Date of Consultation: 06/09/2023 Reason For Consultation: Left shoulder pain. History Of Present Illness: Tanya is an 82-year-old female, who presented to the ER after sustainin g a fall onto her left side with subsequent pain. The injury occurred on June 02, when she fell onto her left side and has a proximal left humerus fracture as well as some facial bruising. The patient has been discharged in the ER initially, however she was brought back to the hospital where she is h aving progressive weakness and she was admitted to the floor. The patient was placed in a shoulder s ling and has been on the floor, undergoing physical therapy. She denies any musculoskeletal complain ts at this time. Review of Systems: As above, otherwise negative. Past Medical History: Includes diabetes, hyperlipidemia, hypothyroidism. Past Surgical History: Includes thyroidectomy, hysterectomy, lumpectomy, carpal tunnel surgery, and right proximal humerus ORIF. Allergies: TO ANTIHISTAMINES. Home Medications: Aspirin, levothyroxine, niacin, fish oil, Janumet. Social History: Denies tobacco or alcohol use. Lives at home. Family History: Reviewed and noncontributory. Physical Examination: General: No apparent distress. HEENT: Normocephalic, atraumatic. Neck: Supple. Cardiovascular: Brisk cap refill to all digits. Chest: Nonlabored breathing. Abdomen: Nondistended. Psychiatric: Response to exam. Musculoskeletal: Bilateral lower extremities functional range of motion without pain. No gross defo rmities. No obvious dislocations. Right upper extremity, functional range of motion without pain. No gross deformities. No obvious dislocation. Left upper extremity pain with range of motion of the left shoulder. Tenderness to palpation over the left proximal humerus. Positive EPL, FPL, intrinsi cs. Sensation grossly intact to radial, median, and ulnar nerve distributions as well as axillary ne rve distributions. Diagnostic Studies: X-rays of the left shoulder demonstrate a minimally displaced left proximal chaz kellen fracture. Assessment/plan: Tanya is an 82-year-old female with a left proximal humerus fracture. I discussed with the patient and her daughter at length the diagnosis as well as treatment plan. Given the mini mal displacement, we will proceed with closed treatment at this time. The patient will remain nonwei ghtbearing at the left upper extremity and remain in sling. We will begin physical therapy in 4-6 we eks post injury. We will get x-rays in 2 weeks for re-evaluation of the fracture. She may follow up in the clinic. RIK/JOE Voice ID: [id number] Report ID: [id number]
--- NOTE | 2023-06-10 11:47 | P.PN ---
Date of Service: 06/10/23 Subjective: Complains of pain with movement of left shoulder working well with physical therapy No acute events overnight ROS: 10 point ROS as noted above, otherwise negative Physical exam GEN: Alert, oriented, NAD HEENT: Normal conjunctiva, sclera anicteric CV: Regular rate and rhythm, no edema Pulm: Nonlabored respirations on room air ABD: Soft, nontender, nondistended MSK: Left arm in sling, pain range of motion of left upper extremity Integumentary: No rashes Neuro: Normal speech, normal affect Vitals reviewed Problem List Weakness, left proximal humeral fracture Dementia Diabetes mellitus type [id number]-nqnasakii Hypertension Hypothyroidism Plan: Weakness, left proximal humeral fracture Dementia Sling to left upper extremity place limiting ability to use walker/ambulate PT consulted Patient lives alone, was unable to get out of her recliner today Concern given her dementia, increased risk for falls, inability to care for herself currently Seen by PT who believes patient would benefit with inpatient rehab banking services officer consulted for acute rehab Orthopedics recommending left arm in sling for 1 month As needed pain medications Having some chest wall pain as well, added incentive spirometry Added lidocaine patch 06/07 CT chest 06/08 no acute findings of the chest/rib fractures Diabetes mellitus type [id number]-opezupu-aocrryyod ACHS Accu-Chek, sliding scale insulin Home medications continued Hypertension Hypothyroidism Home medications continued DVT PPX: Lovenox Code status: Full Discharge Plan: inpatient rehab Plan to discharge in: 24-48 hours Time Spent Managing Pts Care (In Minutes): 35
[2023-06-10] MEDS ORDERED: AMLODIPINE 5 MG TAB PO ONE (15:53)
[2023-06-10] MEDS: AMLODIPINE 5 MG TAB PO ONE (16:06)
[2023-06-11 04:38] LABS: Absolute Basophils 0.1 K/uL (0-0.5); Absolute Eosinophils 0.1 K/uL (0-0.5); Absolute Lymphocytes (CBC) 1.2 K/uL (0.7-4.9); Absolute Monocytes 0.4 K/uL (0.1-1.3); Absolute Neutrophil 3.9 K/uL (1.8-8.0); Basophils % 1.4 % (0-1.3); Eosinophils % 1.6 % (0-4.4); Hematocrit 35.8 % (36.0-45.0); Lymphocytes % 20.9 % (15.3-44.8); MCH 28.9 pg (27.0-35.0); MCHC 33.4 g/dL (32.0-36.0); MCV 86.3 fL (80-100); MPV 8.7 fL (7.6-11.3); Monocytes % 6.6 % (3.3-12.3); Neutrophils % 69.5 % (41.7-73.7); Platelets 241 thou/uL (152-406); RBC Red Blood Cell Count 4.15 M/uL (3.86-4.86); Red Cell Distribution Width 14.7 % (12.1-15.2)
[2023-06-11 04:55] LABS: Anion Gap 10.8 mEq/L (5.0-15.0); Magnesium 1.9 mg/dL (1.6-2.4); Potassium 3.8 mEq/L (3.5-5.1)
[2023-06-11] MEDS: HYDRALAZINE HCL 20 MG/ML VIAL IV PRN (06:08)
[2023-06-11] MEDS: AMLODIPINE 5 MG TAB PO SCH (08:49)
--- NOTE | 2023-06-11 11:29 | P.PN ---
Date of Service: 06/11/23 Subjective: Complains of pain with movement of left shoulder working well with physical therapy No acute events overnight possibly slightly worsening confusion per family ROS: 10 point ROS as noted above, otherwise negative Physical exam GEN: Alert, oriented, NAD HEENT: Normal conjunctiva, sclera anicteric CV: Regular rate and rhythm, no edema Pulm: Nonlabored respirations on room air ABD: Soft, nontender, nondistended MSK: Left arm in sling, pain range of motion of left upper extremity Integumentary: No rashes Neuro: Normal speech, normal affect Vitals reviewed Problem List Weakness, left proximal humeral fracture Dementia UTI-ESBL Diabetes mellitus type [id number]-[id number] Hypertension Hypothyroidism Plan: Weakness, left proximal humeral fracture Dementia Sling to left upper extremity place limiting ability to use walker/ambulate PT consulted Patient lives alone, was unable to get out of her recliner today Concern given her dementia, increased risk for falls, inability to care for herself currently Seen by PT who believes patient would benefit with inpatient rehab human services supervisor consulted for acute rehab Orthopedics recommending left arm in sling for 1 month As needed pain medications Having some chest wall pain as well, added incentive spirometry Added lidocaine patch 06/07 CT chest 06/08 no acute findings of the chest/rib fractures UTI-ESBL Patient family reports possibly slightly more confused than baseline although she does have some underlying dementia Started Merrem IV 06/10 ID consult Diabetes mellitus type 4qxo-lrmfuqy-orxkaqsoj ACHS Accu-Chek, sliding scale insulin Home medications continued Hypertension Hypothyroidism Home medications continued DVT PPX: Lovenox Code status: Full Discharge Plan: inpatient rehab Plan to discharge in: 24-48 hours Time Spent Managing Pts Care (In Minutes): 35 <Tuan Biggs - Last Filed: 06/11/23 11:27> Patient seen and examined on rounds this morning with MERCHANT BANKER Dian. Agree with plan as noted above with the following additions/corrections: cough increased yesterday, not taking pain meds much, but consistently wincing with any movement or light cough discussed importance of pain control to prevent further complications, to allow good cough and use of incentive spirometer discussed with daughter, bringing diclofenac cream to apply to ribs, and sche duling tramadol urine culture: ESBL e.coli denies urinary symptoms, but states she is "predisposed to getting UTIs" family report a few episodes in last day where she has been having slight increased confusion start merrem 06/10 <Darek Austin - Last Filed: 06/11/23 13:39>
[2023-06-11] MEDS: Meropenem 1,000 MG in NA CHLORIDE 0.9% 100 ML IV SCH (14:18)
[2023-06-11] MEDS: TRAMADOL HCL 50 MG TAB PO SCH (14:19)
[2023-06-12] MEDS: MORPHINE 2 MG/ML SYR IM ONE (02:00)
[2023-06-12] MEDS ORDERED: MORPHINE 2 MG/ML SYR IV PRN (05:51)
--- NOTE | 2023-06-12 10:01 | P.CNS ---
Date of Consult: 06/12/23 Reason for Consult: e.coli ESBL Chief Complaint: Weakness, left humeral fracture History of Present Illness: Patient is an 82 year old female with a PMH of non-insulin dependent diabetes mellitus, hypertension, hypothyroidism, hyperlipidemia who presented to the ED with complaints of increasing weakness. Patient was recently hospitalized following a mechanical fall and suffered a proximal left humerus fracture and facial hematoma. Urine culture growing E.coli ESBL. Infectious disease was consulted. Allergies Antihistamines - Alkylamine Adverse Reaction (Mild, Verified 12/06/12 14:35) Itching Home medications list reviewed: Yes Home Medications: Aspirin [Aspirin EC 81 MG] 81 mg PO DAILY 12/06/12 Hydroxychloroquine [Plaquenil] 200 mg PO BID 06/07/23 Levothyroxine Sodium 88 mcg PO DAILY 06/07/23 Metformin HCl 1,000 mg PO DAILY 06/07/23 Metformin HCl 1,500 mg PO BEDTIME 06/07/23 Pioglitazone HCl 30 mg PO DAILY 06/07/23 Prednisone 2.5 mg PO DAILY 06/07/23 Ramipril [Altace] 5 mg PO DAILY 06/07/23 Tramadol HCl [Ultram] 50 mg PO Q8HP 06/07/23 Donepezil [Aricept*] 10 mg PO DAILY 06/12/23 - Past Medical/Surgical History Diabetic: Yes -: DM -: Hyperlipidemia -: Hypothyroidism -: Thyroidectomy -: Hysterectomy -: Lumpectomy -: Carpal tunnel surgery -: Right humeral repair Psychosocial/ Personal History: Lives at home, alone. - Social History Smoking Status: Unknown if ever smoked Alcohol use: No Place of Residence: Home Review of Systems 10-point ROS is otherwise unremarkable General: Weakness Genitourinary: Unremarkable Musculoskeletal: Arm Pain Integumentary: Bruising (facial) Physical Examination Temp Pulse Resp BP Pulse Ox 97.9 F 73 15 155/71 H 93 06/12/23 08:00 06/12/23 08:00 06/12/23 08:00 06/12/23 08:00 06/12/23 08:00 General: Alert, In no apparent distress, Oriented x3 HEENT: Other (facial bruising (from mechanical fall)) Respiratory: Clear to auscultation bilaterally, Normal air movement, Other (unlabored respirations on room air) Cardiovascular: No edema, Regular rate/rhythm Gastrointestinal: Normal bowel sounds, Soft and benign, Non-distended Integumentary: No rashes Neurological: Normal speech Laboratory Data - Reviewed Microbiology Data - Reviewed Imagings Data: - Reviewed Conclusions/Impression: Problem List Acute Cystitis Left humeral fracture Diabetes Mellitus type II Hypothyroidism Hypertension Acute Cystitis, E.coli ESBL - Urine culture: Escherichia coli ESBL - On meropenem (started 06/10) - afebrile - no leukocytosis Recommendations - Continue meropenem or ertapenem IV for 5 days 06/10-06/15). Patient denies any urinary symptoms. - Continue supportive care / physical therapy - strict blood glucose control - Pending rehab placement. CM/SS following. Case discussed with Samir Wolf
[2023-06-12] MEDS: CODEINE 30MG/APAP 300MG TAB PO PRN (10:13)
--- NOTE | 2023-06-12 12:42 | P.PN ---
Date of Service: 06/12/23 Subjective: Complains of pain with movement of left shoulder or cough working well with physical therapy No acute events overnight slightly worsening confusion per family ROS: 10 point ROS as noted above, otherwise negative Physical exam GEN: Alert, oriented, NAD HEENT: Normal conjunctiva, sclera anicteric CV: Regular rate and rhythm, no edema Pulm: Nonlabored respirations on room air ABD: Soft, nontender, nondistended MSK: Left arm in sling, pain range of motion of left upper extremity Integumentary: No rashes Neuro: Normal speech, normal affect Vitals reviewed Problem List Weakness, left proximal humeral fracture Dementia UTI-ESBL Diabetes mellitus type [id number]-cpakkzj-bvwujpwah Hypertension Hypothyroidism Plan: Weakness, left proximal humeral fracture Dementia Sling to left upper extremity place limiting ability to use walker/ambulate PT consulted Patient lives alone, was unable to get out of her recliner today Concern given her dementia, increased risk for falls, inability to care for herself currently Seen by PT who believes patient would benefit with inpatient rehab executive services administrator consulted for acute rehab Orthopedics recommending left arm in sling for 1 month As needed pain medications Having some chest wall pain as well, added incentive spirometry Added lidocaine patch 06/07 CT chest 06/08 no acute findings of the chest/rib fractures UTI-ESBL Patient family reports possibly slightly more confused than baseline although she does have some underlying dementia Started Merrem IV 06/10 will need 5 days total ending 06/14 ID consult Diabetes mellitus type [id number]-[id number]-ajtqrosxr ACHS Accu-Chek, sliding scale insulin Home medications continued Hypertension Hypothyroidism Home medications continued DVT PPX: Lovenox Code status: Full Discharge Plan: inpatient rehab Plan to discharge in: 24-48 hours Time Spent Managing Pts Care (In Minutes): 35 <Tuan Biggs - Last Filed: 06/12/23 12:41> Patient seen and examined on rounds this morning with BATCH AND FURNACE MANAGER Dian. Agree with plan of care as noted above with the following additions / corrections: Pain improved, cough episode last night, but improved this morning no new/worsening symptoms daughter at bedside reports some confusion last night - nmroe than usual awaiting rehab appeal <Darek Austin - Last Filed: 06/12/23 22:42>
[2023-06-12] MEDS: DONEPEZIL HCL 5 MG TAB PO SCH (21:52)
[2023-06-13 01:08] VITALS: O2SAT 93
[2023-06-13 07:06] LABS: Anion Gap 6.9 mEq/L (5.0-15.0); Potassium 3.9 mEq/L (3.5-5.1)
--- NOTE | 2023-06-13 09:41 | P.PN ---
Date of Service: 06/13/23 Chief Complaint: Weakness, left humeral fracture Subjective: Patient sitting in chair. In no apparent distress. No acute events overnight. She denies any new or worsening complaints at this time. No urinary symptom. Physical Examination Temp Pulse Resp BP Pulse Ox 97.3 F 65 18 157/70 H 91 06/13/23 08:00 06/13/23 08:19 06/13/23 08:00 06/13/23 08:19 06/13/23 08:00 General: Alert, In no apparent distress, Oriented x3 HEENT: facial bruising (from mechanical fall) Respiratory: Clear to auscultation bilaterally, Normal air movement. unlabored respirations on room air. Cardiovascular: No edema, Regular rate/rhythm Gastrointestinal: Normal bowel sounds, Soft and benign, Non-distended Integumentary: Skin warm and dry. Laboratory Data - Reviewed Microbiology Data - Reviewed Imagings Data: - Reviewed Medication list: - Reviewed Assessment and Plan Problem List Acute Cystitis Left humeral fracture Diabetes Mellitus type II Hypothyroidism Hypertension Acute Cystitis, E.coli ESBL - Urine culture: Escherichia coli ESBL - On meropenem (started 06/10) - afebrile - no leukocytosis Recommendations - Acute cystitis, ESBL: Continue meropenem or ertapenem IV for 5 days (06/10- 06/15). Patient denies any urinary symptoms. - Continue supportive care / physical therapy - strict blood glucose control - Pending rehab placement. CM/SS following. Case discussed with Samir Wolf
--- NOTE | 2023-06-13 16:43 | P.PN ---
Date of Service: 06/13/23 Subjective: conversing, no new complaints afebrile ROS: 10 point ROS as noted above, otherwise negative Physical exam GEN: Alert and oriented x 2, NAD HEENT: Normal conjunctiva, sclera anicteric CV: RRR, no edema, S1-S2 present Pulm: Nonlabored respirations on room air ABD: Soft and benign on palpation, NT/ND, positive bowel sounds MSK: Left arm in sling, pain range of motion of left upper extremity Integumentary: No rashes, bruising to face Neuro: Normal speech, normal affect Vitals reviewed Problem List Weakness, left proximal humeral fracture Dementia UTI-ESBL Diabetes mellitus type [id number]-[id number] Hypertension Hypothyroidism Plan: Weakness, left proximal humeral fracture Dementia Sling to left upper extremity place limiting ability to use walker/ambulate PT consulted Patient lives alone, was unable to get out of her recliner Concern given her dementia, increased risk for falls, inability to care for herself currently Seen by PT who believes patient would benefit with inpatient rehab oil well services superintendent consulted for acute rehab Orthopedics recommending left arm in sling for 1 month As needed pain medications continue incentive spirometry for chest pain d/t fall Added lidocaine patch 06/07 CT chest 06/08 no acute findings of the chest/rib fractures UTI-ESBL Patient family reports possibly slightly more confused than baseline although she does have some underlying dementia Started Merrem IV 06/10 will need 5 days total ending 06/15 ID consult Diabetes mellitus type [id number]-[id number] ACHS Accu-Chek, sliding scale insulin Home medications continued Hypertension Hypothyroidism Home medications continued DVT PPX: Lovenox Code status: Full Discharge Plan: inpatient rehab pending
--- NOTE | 2023-06-14 08:49 | P.PN ---
Date of Service: 06/14/23 Chief Complaint: Weakness, left humeral fracture Subjective: In no apparent distress. Breathing comfortably on room air. No acute events overnight. Denies any urinary symptoms at this time. No new or worsening complaints. Continue current plan of care. Physical Examination Temp Pulse Resp BP Pulse Ox 97.7 F 64 18 167/75 H 95 06/14/23 04:00 06/14/23 04:00 06/14/23 04:00 06/14/23 04:00 06/14/23 04:00 General: Alert, In no apparent distress, Oriented x3 HEENT: facial bruising (from mechanical fall). Respiratory: Clear to auscultation bilaterally, Normal air movement. on Room air. Cardiovascular: No edema, Regular rate/rhythm Gastrointestinal: Normal bowel sounds, Soft and benign, Non-distended. Non- tender. Integumentary: Skin warm and dry. Laboratory Data - Reviewed Microbiology Data - Reviewed Imagings Data: - Reviewed Medication list: - Reviewed Assessment and Plan Problem List Acute Cystitis Left humeral fracture Diabetes Mellitus type II Hypothyroidism Hypertension Acute Cystitis, E.coli ESBL - Urine culture: Escherichia coli ESBL - On meropenem (started 06/10) - afebrile - no leukocytosis Recommendations - Acute cystitis, ESBL: Continue meropenem or ertapenem IV for 5 days (06/10- 06/15). - On day 3/5 - Continue supportive care / physical therapy - strict blood glucose control - Pending rehab placement. CM/SS following. Case discussed with Samir Wolf
--- NOTE | 2023-06-14 11:32 | P.DS ---
Admission Date: 06/08/23 Discharge Date: 06/17/23 Disposition: TRANSFER TO SNF - REHAB Discharge Condition: FAIR Reason for Admission: Weakness, left humeral fracture Brief History of Present Illness: Diagnosis Weakness, left proximal humeral fracture Dementia UTI-ESBL Diabetes mellitus type [id number] Hypertension Hypothyroidism HPI 06/06/23 Tanya Joyner is an 82-year-old female with history of ptr-qijdequ-klyktghxy diabetes, hypertension, secondary hypothyroidism presents to the emergency department chief complaint of weakness, fall, left upper extremity pain. On 06/03/2023 she suffered a mechanical fall with a proximal left humerus fracture and facial hematoma. She was discharged home with a sling in place and instructions to follow-up with orthopedics. Daughter reports that she has been having increasing weakness and was unable to stand up without assistance today. Patient lives at home, alone and there is concern for her ability to care for herself given her increasing weakness, pain to the left upper extremity. Patient was evaluated in the emergency department her labs were unremarkable chest x-ray was negative for acute findings, ribs series x-ray was performed as well which showed no displaced rib fractures. ED provider wishes admit patient under observation for weakness, left proximal humeral fracture Hospital Course: Tanya Joyner is a pleasant 82 year old female with a past medical history significant for kge-nzfxizh-drjppfwzk diabetes, hypertension, secondary hypothyroidism who was admitted to the [facility] on 06/06/23 for weakness, left proximal humeral fracture. Tanya Joyner presented to the ED on 06/06/2023 with chief complaint of weakness status post mechanical fall on 06/03/2023 resulting in left humeral fracture and since has become more weak. Urine culture shows ESBL and Merrem IV was started. Will continue IV Merrem at [facility] upon discharge. Schedule an xray 2 weeks from discharge. On 06/14/23, Tanya was seen on morning rounds and deemed medically stable for discharge. Tanya was discharged with instructions to schedule follow-up appointments with PCP and Dr. Traore. The patient and family members were given the opportunity to ask questions and reported no further questions. Furthermore, all questions were answered to the best of my ability. A copy of this discharge summary will be sent to the above providers to facilitate continuity of care. Today, I personally spent 50 minutes with Tanya and family, of which greater than 50% of the time was spent in patient education, counseling, and coordination of care as described above. Physical exam GEN: AAOx 2, NAD HEENT: Normal conjunctiva, sclera anicteric CV: S1-S2 present, RRR Pulm: Nonlabored respirations on room air ABD: Soft and benign on palpation, normoactive bowel sounds MSK: Left arm in sling, painful range of motion of left upper extremity Integumentary: No rashes, bruising to face Neuro: Normal speech, normal affect Vital Signs/Physical Exam: Temp Pulse Resp BP Pulse Ox 97.3 F 62 17 124/78 98 06/14/23 08:00 06/14/23 08:00 06/14/23 08:00 06/14/23 08:00 06/14/23 08:00 Laboratory Data at Discharge: WBC 5.60 thou/uL (4.3-10.9) 06/11/23 04:17 Hgb 12.0 g/dL (12.0-15.0) 06/11/23 04:17 Hct 35.8 % (36.0-45.0) L 06/11/23 04:17 Plt Count 241 thou/uL (152-406) 06/11/23 04:17 Sodium 136 mEq/L (136-145) 06/13/23 05:41 Potassium 3.9 mEq/L (3.5-5.1) 06/13/23 05:41 BUN 28 mg/dL (7-18) H 06/13/23 05:41 Creatinine 0.82 mg/dL (0.55-1.02) 06/13/23 05:41 Glucose 107 mg/dL (74-106) H 06/13/23 05:41 Magnesium 1.9 mg/dL (1.6-2.4) 06/11/23 04:17 Total Bilirubin Cancelled 06/06/23 10:55 AST Cancelled 06/06/23 10:55 ALT Cancelled 06/06/23 10:55 Alkaline Phosphatase Cancelled 06/06/23 10:55 Home Medications: Aspirin [Aspirin EC 81 MG] 81 mg PO DAILY 12/06/12 Hydroxychloroquine [Plaquenil*] 200 mg PO BID 06/07/23 Levothyroxine Sodium 88 mcg PO DAILY 06/07/23 Metformin HCl 1,000 mg PO DAILY 06/07/23 Metformin HCl 1,500 mg PO BEDTIME 06/07/23 Pioglitazone HCl 30 mg PO DAILY 06/07/23 Prednisone 2.5 mg PO DAILY 06/07/23 Ramipril [Altace] 5 mg PO DAILY 06/07/23 Tramadol HCl [Ultram] 50 mg PO Q8HP 06/07/23 Donepezil [Aricept*] 10 mg PO DAILY 06/12/23 Amlodipine [Norvasc*] 5 mg PO DAILY tab 06/14/23 Codeine/APAP [Tylenol #3*] 1 tab PO Q6H PRN #0 tab 06/14/23 Lidocaine 4% Patch [Lidoderm 5% Patch*] 1 patch TOP DAILY pat 06/14/23 Physician Discharge Instructions: Tanya Joyner presented to the ED on 06/06/2023 with chief complaint of weakness status post mechanical fall on 06/03/2023 resulting in left humeral fracture and since has become more weak. Urine culture shows ESBL and Merrem IV was started. Will continue IV Merrem at [facility] upon discharge. Schedule an xray 2 weeks from discharge 1. Please call and schedule a follow-up appointment with your PCP in 3-5 days - Please follow-up with your PCP for medication refills/adjustments 2. Please call and schedule a follow-up appointment with León in one week 3. Continue diabetic diet 4. Fall precaution continue to work with physical therapy 5. Return to ED if needed Diet: ADA Activity: Fall precautions Followup: Jayjay Narvaez MD [Primary Care Provider] - Dyllan Traore MD [ACTIVE - CAN ADMIT] - Time spent managing pt's care (in minutes): 50
[2023-06-14 12:53] VITALS: TEMP 97.2
[2023-06-14] MEDS: Mupirocin NASAL 2 APPL/1 GM TUBE NAS SCH (15:08)
[2023-06-14 17:17] VITALS: BP 155/78
== END 2023-06-14 17:23 | DRG 563 ==
LOC: ER 10:47 → ERHOLD 14:32 → 4TH 17:42 → OBSVTOIN 06-08 09:40
PROVIDERS: ADMIT Hospitalist; ATTEND Internal Medicine
DX: S42.202A Unspecified fracture of upper end of left humerus, initial encounter for closed fracture (principal); Z16.12 Extended spectrum beta lactamase (ESBL) resistance; N30.00 Acute cystitis without hematuria; I10 Essential (primary) hypertension; E11.9 Type 2 diabetes mellitus without complications; E03.9 Hypothyroidism, unspecified; E78.00 Pure hypercholesterolemia, unspecified; F03.A0 Unspecified dementia, mild, without behavioral disturbance, psychotic disturbance, mood disturbance, and anxiety; B96.20 Unspecified Escherichia coli [E. coli] as the cause of diseases classified elsewhere; Z88.8 Allergy status to other drugs, medicaments and biological substances; Z60.2 Problems related to living alone; Z85.3 Personal history of malignant neoplasm of breast; Z88.5 Allergy status to narcotic agent; Z79.82 Long term (current) use of aspirin; Z79.84 Long term (current) use of oral hypoglycemic drugs; Z79.52 Long term (current) use of systemic steroids; Z90.710 Acquired absence of both cervix and uterus; Z79.899 Other long term (current) drug therapy; Z79.890 Hormone replacement therapy; W18.30XA Fall on same level, unspecified, initial encounter; Y92.019 Unspecified place in single-family (private) house as the place of occurrence of the external cause; Y93.9 Activity, unspecified; Y99.9 Unspecified external cause status
CPT/HCPCS: 31720; 36415; 71045; 71250; 80048; 80053; 81001; 82248; 82947; 83735; 84439; 84443; 85025; 87077; 87086; 87088; 87186; 93005; 94010; 97116; 97161; 97165; 97530; 99282; G0378; J0360; J1650; J2001; J2185; J2270; J7512